=== PATIENT | male | born 1980 | race Caucasian/White ===

== ENCOUNTER 2017-08-22 23:17 | Observation (INO) ==
--- NOTE | 2017-08-22 23:37 | Emergency Department Note ---
Disposition Clinical Impression: Hypoxia, Tachycardia, Bronchitis Fever Qualifiers: Fever type: unspecified Qualified Code(s): R50.9 - Fever, unspecified Leukocytosis Qualifiers: Leukocytosis type: unspecified Qualified Code(s): D72.829 - Elevated white blood cell count, unspecified Disposition: Admitted As Inpatient Condition: Good Referrals: Hannah Bauman [employer] [Primary Care Provider] - Forms: ED Satisfaction Letter Time of Disposition: 00:26 SOB HPI - General Chief Complaint: ED Shortness of Breath/Dyspnea Stated Complaint: SOB / CP Time Seen by Provider: 08/22/17 23:28 Source: patient Mode of arrival: ambulatory Limitations: no limitations Nursing Notes Reviewed: Yes Vital Signs Reviewed: Yes - History of Present Illness Patient is a 36-year-old male who presents today due to cough, shortness of breath, fever. The symptoms have been present over the past 3 days. Fevers have been as high as 101 at home. I have seen this patient in the past about a month ago due to concern for chronic cough. At that time, the patient was sent home with a albuterol inhaler. He says that he has been using this at home and does not feel that it is working. He has a pulmonology appointment tomorrow at [facility] for further evaluation of his chronic cough and shortness of breath. However, his symptoms have worsened over the past 3 days which has prompted him to come into the ER. He has a home pulse ox and says that his pulse ox meter has been below 88% at home, especially when he exerts himself. He does not have any oxygen at home, no previous official diagnosis of asthma or COPD. Nonsmoker. - Related Data Previous Rx's Medication Instructions Recorded PredniSONE [Deltasone] 60 mg PO DAILY 5 Days #15 tablet 07/26/17 Allergies Allergy/AdvReac Type Severity Reaction Status Date / Time Penicillins [PCN] Allergy Hives Verified 07/25/17 21:23 All systems ED: reviewed and negative except as stated. Constitutional: Reports: fever Cardiovascular: Denies: chest pain Respiratory: Reports: cough, dyspnea. Denies: wheezes, sputum production Gastrointestinal: Denies: abdominal pain, nausea, vomiting, diarrhea Genitourinary: Denies: urgency, dysuria, frequency Integumentary: Denies: rash Neurological: Denies: weakness, numbness, paresthesias Past Medical History - Past Medical History Attestation: Yes The following information was validated with the patient. Source: patient Medical history: Reports: asthma, diabetes Psychiatric history: Reports: no psych history - Social History Smoking Status: Never smoker Smokeless Tobacco Status: No Alcohol use: Reports: none Drug use: Reports: none Physical Exam - General Limitations: no limitations General appearance: alert - Head Head exam: atraumatic, normocephalic, normal inspection - Eye Eye exam: Present: normal appearance, PERRL, EOMI - ENT ENT exam: normal exam, normal oropharynx, mucous membranes moist - Neck Neck exam: Present: normal inspection, full ROM, trachea midline - Chest Chest inspection: Present: normal inspection, symmetric chest wall rise - Respiratory Respiratory exam: Present: other (Decreased aeration throughout but no overt wheezes.) - Cardiovascular Cardiovascular exam: Present: normal rhythm, tachycardia, normal heart sounds - Abdominal Exam Abdominal exam: Present: soft, Non-Tender. Absent: tenderness, distention, guarding, rebound, rigidity - Extremities Exam Extremities exam: Present: normal inspection, full ROM. Absent: tenderness, pedal edema - Neurological Exam Neurological exam: Present: alert, oriented X3 - Psychiatric Psychiatric exam: Present: normal affect, normal mood - Skin Skin exam: Present: warm, dry, intact, normal color Course Course Narrative: Patient currently meeting SIRS criteria with tachycardia, fever and concern for respiratory illness. Oxygen was 91% on room air during my encounter. Patient was having reads of 88% at home on home pulse ox. Chest x-ray was negative. Currently waiting on flu swab and basic bloodwork. We will give the patient Solu-Medrol and DuoNeb 3. Plan for admission at this time. Patient likely has bronchitis with possible underlying asthma or COPD, recommend further workup by pulmonology. Will give dose of levaquin. No concern for PE at this time as patient has not had any unilateral calf swelling, long car rides, recent surgeries, any history of DVT or PE. 00:26 blood work shows leukocytosis of 18. Flu swab and lactic still pending. We will admit the patient for further care with the above plan. Chest X-Ray 08/22/17 23:23 IMPRESSION: No acute abnormality D/ / Gerry Bryson / Gerry Bryson Interpreting Provider: Gerry Bryson Vital Signs Temperature 100.0 F H 08/22/17 23:20 Pulse Rate 138 08/22/17 23:20 Respiratory Rate 20 08/22/17 23:20 Blood Pressure 146/78 08/22/17 23:20 O2 Sat by Pulse Oximetry 92 08/22/17 23:20 Temperature 100.0 F H 08/22/17 23:20 Pulse Rate 113 08/23/17 00:21 Respiratory Rate 18 08/23/17 00:22 Blood Pressure 137/80 08/23/17 00:21 O2 Sat by Pulse Oximetry 95 08/23/17 00:22 Oxygen Delivery Oxygen Delivery Nasal Cannula Shortness of Breath/Dyspnea - [facility] Narrative Medical decision making narrative: Patient currently meeting SIRS criteria with tachycardia, fever and concern for respiratory illness. Oxygen was 91% on room air during my encounter. Patient was having reads of 88% at home on home pulse ox. Chest x-ray was negative. Currently waiting on flu swab and basic bloodwork. We will give the patient Solu-Medrol and DuoNeb 3. Plan for admission at this time. Patient likely has bronchitis with possible underlying asthma or COPD, recommend further workup by pulmonology. Will give dose of levaquin. No concern for PE at this time as patient has not had any unilateral calf swelling, long car rides, recent surgeries, any history of DVT or PE. 00:26 blood work shows leukocytosis of 18. Flu swab and lactic still pending. We will admit the patient for further care with the above plan. - Medical Records Medical records reviewed: Yes I reviewed the patient's medical records. - Lab Data Lab results reviewed: Yes I reviewed the patient's lab results. Result diagrams: 08/22/17 00:00 Lab Results 08/22/17 Range/Units 00:00 WBC 18.7 H (4.3-11.1) K/mcL RBC 5.02 (4.19-5.50) M/mcL Hgb 14.4 (12.9-16.9) g/dL Hct 42.8 (37.5-50.1) % MCV 85.3 (83.0-100.0) fL MCH 28.7 (28.0-33.3) pg MCHC 33.6 (31.6-35.5) g/dL RDW 13.1 (11.5-14.5) % Plt Count 473 H (140-400) K/mcL MPV 9.9 (9.4-12.4) fL Immature Gran % 0.3 (0-4) % Seg Neutrophils % 70.4 % Lymphocytes % 19.4 % Monocytes % 7.8 % Eosinophils % 1.6 % Basophils % 0.5 % Neutrophils # 13.1 H (1.6-8.9) K/mcL Lymphocytes # 3.6 (0.6-4.6) K/mcL Monocytes # 1.5 H (0.0-1.3) K/mcL Eosinophils # 0.3 (0.0-0.6) K/mcL Basophils # 0.1 (0.0-0.2) K/mcL - Radiology Data Radiology results reviewed: Yes I reviewed the patient's radiology results. Chest X-Ray 08/22/17 23:23 IMPRESSION: No acute abnormality D/ / Gerry Bryson / Gerry Bryson Interpreting Provider: Gerry Bryson - EKG Data EKG attestation: Yes I reviewed and interpreted this EKG. EKG results narrative: 08/22/2017 at 23:29. Sinus tachycardia. Rate 128. OH 147. QRS 106. QTC 369. Mild left axis deviation. No acute ST elevation or depression. There are T wave inversions in lead 3. S.B.A.R. - S.B.A.R. Situation: Demographics, MOA Background: Presenting Complaint, Relevant PMH, Meds, & Allergies Assessment: Vital Signs, Course and respsone to treatment, Exam Concerns, Patient/Family Expectation, Pertinant Lab Results, Outstanding Labs Recommendation: Barrier(s) to disposition, Recommendation based on pending studies, treatments, or consults S.B.A.R. Report Given to: Dr. Skinner, flu and lactic pending Attestation Statement - Attestation Attestation: I examined this patient and my medical decision-making was reviewed with the Resident Physician. I agree with the documented findings, disposition and treatment plan as described except to the extent set forth below. Findings consistent with possible influenza related pneumonia. We will obtain chest x- ray, provide IV fluids, Tylenol, antibiotic therapy. Cultures will be sent. Patient be admitted for further management.
[2017-08-22] MEDS ORDERED: Acetaminophen IV 1,000 MG/100 ML INFUS..BTL IVPB ONE (23:48)
[2017-08-22] MEDS: 0.9 % Sodium Chloride 1,000 ML IVC SCH (23:56)
[2017-08-23] MEDS ORDERED: methylPREDNISolone 125 MG/2 ML VIAL IVP ONE (00:03)
[2017-08-23] MEDS ORDERED: Ipratropium/Albuterol Neb 3 ML IH ONE (00:03)
[2017-08-23] MEDS: 0.9 % Sodium Chloride 1,000 ML IVC SCH (00:15)
[2017-08-23] MEDS ORDERED: Levofloxacin 500 MG/100 ML 500 MG/100 ML BAG IVPB ONE (00:16)
[2017-08-23 00:18] LABS: Basophils # 0.1 K/mcL (0.0-0.2); Basophils % 0.5 %; Eosinophils # 0.3 K/mcL (0.0-0.6); Eosinophils % 1.6 %; Hematocrit 42.8 % (37.5-50.1); Hemoglobin 14.4 g/dL (12.9-16.9); Immature Granulocytes % 0.3 % (0-4); Lymphocytes # 3.6 K/mcL (0.6-4.6); Lymphocytes % 19.4 %; Mean Corpuscular HGB Conc 33.6 g/dL (31.6-35.5); Mean Corpuscular Hemoglobin 28.7 pg (28.0-33.3); Mean Corpuscular Volume 85.3 fL (83.0-100.0); Mean Platelet Volume 9.9 fL (9.4-12.4); Monocytes # 1.5 K/mcL (0.0-1.3); Monocytes % 7.8 %; Neutrophils # 13.1 K/mcL (1.6-8.9); Platelet Count 473 K/mcL (140-400); Red Blood Count 5.02 M/mcL (4.19-5.50); Red Cell Distribution Width 13.1 % (11.5-14.5); Segmented Neutrophils % 70.4 %
[2017-08-23 00:42] LABS: BUN/Creatinine Ratio 16 (6-26); Blood Urea Nitrogen 15 mg/dL (6-20); Calcium 8.5 mg/dL (8.6-10.3); Carbon Dioxide 26 mEq/L (23-29); Chloride 105 mEq/L (98-107); Glucose 93 mg/dL (70-105); Osmolality,Calculated 287 (280-300); Potassium 3.3 mEq/L (3.5-5.1); Sodium 138 mEq/L (136-145); eGFR For African Americans > 60 (> 60); eGFR For Non-African Americans > 60 (> 60)
[2017-08-23 00:43] LABS: Troponin I < 0.03 ng/mL (< 0.04)
--- NOTE | 2017-08-23 04:38 | Internal Med History&Physical ---
<JuanitolaciAlexandra bustillo H - Last Filed: 08/23/17 06:00> Date of Encounter: 08/23/17 Time of Encounter: 04:34 Internal Medicine - H&P: HPI Chief complaint: shortness of breath/cough Admitted From: Emergency Dept Plans for Post Hospital Care: Home History of present illness: Mr. Olivier is a 36 year old male with past medical history DM1 and seasonal allergies presents to [facility] on 08/23/2017 with CC of SOB and cough. Patient states he has had pneumonia several times in the past, therefore, he has a home pulse oximeter. He states his pulse ox at home have been reading in the high 80s range. States symptoms began approximately 6 weeks ago. He states it has been worsening since then. Over this past 6 weeks, he has been on 2 courses of antibiotics including a Z-Jason and a shot of Rocephin as well as Solu-Medrol. States he developed fevers on Sunday as well as cough and nasal congestion, sinus pressure, and sinus headaches. He is scheduled to see a public health director at [facility] tomorrow. Due to his fevers, worsening shortness of breath, and cough, he decided to present to the ED tonight. He denies any recent sick contacts, poor indoor home air quality, or recent moves. He states his only medication is insulin and singulair. He denies any chills, night sweats, nausea, vomiting, diarrhea, abdominal pain, chest pain, diaphoresis, hematuria, or dysuria. Past Med Surg Social Fam HX - Past Medical History Medical history: asthma, diabetes Psychiatric history: no psych history - Past Surgical History Surgical History: appendectomy - Social History Smoking Status: Never smoker Smokeless Tobacco Status: No Alcohol use: none Drug use: none Internal Medicine - H&P: Meds Montelukast [Singulair] 10 mg PO DAILY 08/23/17 [History] 3 Allergy/AdvReac Type Severity Reaction Status Date / Time Penicillins [PCN] Allergy Hives Verified 07/25/17 21:23 All Systems PM: A 10-system review of systems was performed and is negative for pertinent findings except as documented above in the HPI. - Constitutional Constitutional: fever(s), no anorexia, no chills, no night sweats, no weight gain, no weight loss - EENT Eyes: no change in vision, no other visual disturbances Ears: no decreased hearing Nose, mouth and throat: sinus pressure, no facial pain, no hoarseness - Cardiovascular Cardiovascular ROS IM: dyspnea on exertion, no chest pain, no claudication, no diaphoresis, no edema, no irregular heart rhythm, no lightheadedness, no orthopnea, no palpitations, no paroxysmal nocturnal dyspnea, no syncope - Respiratory Respiratory: cough (Dry), dyspnea, no wheezing, no pain on inspiration, no chest congestion, no excessive phlegm production, no pain with cough - Constitutional Vitals: Temp Pulse Resp BP Pulse Ox 98.7 F 110 18 130/79 93 08/23/17 02:10 08/23/17 02:10 08/23/17 02:10 08/23/17 02:10 08/23/17 02:10 Internal Med - H&P Results - Labs CBC & Chem 7: 08/22/17 00:00 08/22/17 23:23 - Assessment and plan (1) Cough Current Visit: Yes Status: Acute Assessment and plan: Suspect patient has asthma. Reports history as a baby. -patient has gotten significant relief from Duonebs -will continue duonebs. -DC IV steroids as patient with DM1 on insulin pump. -dextromethorphan 60mgPO q12hr -needs outpatient FU with public health director for further work up. Had appointment scheduled for today with public health director at [facility]. (2) Lower respiratory infection Current Visit: Yes Status: Acute Assessment and plan: Suspect viral process. Will cover for antibiotics to cover for any underlying infectious etiology. -FU respiratory infectious panel -FU blood cultures ordered in ED (3) Leukocytosis Current Visit: Yes Status: Acute Assessment and plan: Patient recently got a shot of steroids at urgent care 3 days ago. -Likely reactive leukocytosis secondary to steroid exposure. Qualifiers: Leukocytosis type: unspecified Qualified Code(s): D72.829 - Elevated white blood cell count, unspecified (4) Diabetes Current Visit: Yes Status: Acute Assessment and plan: Patient with DM1 on insulin pump. -Will continue pump as an inpatient. Qualifiers: Diabetes mellitus type: type 1 Diabetes mellitus complication status: without complication Qualified Code(s): E10.9 - Type 1 diabetes mellitus without complications - Time Spent With Patient Total time spent is greater than 50% in coordination of care (as documented) at patient's floor/unit and/or counseling patient: <Jonathon Caceres - Last Filed: 08/23/17 06:39> Date of Encounter: 08/23/17 Time of Encounter: 05:40 Past Med Surg Social Fam HX - Additional Family History Additional family history: No FH asthma or COPD - Constitutional Constitutional: fever(s), no chills, no night sweats - Cardiovascular Cardiovascular ROS IM: dyspnea, dyspnea on exertion, no chest pain - Respiratory Respiratory: cough, dyspnea, no hemoptysis, no wheezing, no chest congestion, no excessive phlegm production, no change in phlegm color, no pain with cough - Gastrointestinal Gastrointestinal: no abdominal pain, no diarrhea, no vomiting - Genitourinary Genitourinary ROS male: no dysuria, no hematuria - Musculoskeletal Musculoskeletal ROS IM: no muscle cramps, no myalgias - Integumentary Integumentary IM: no rash - Neurological Neurological ROS: no dizziness, no focal weakness, no headache(s) - Psychiatric Psychiatric: no anxiety, no depression - Endocrine Endocrine IM: no polydipsia, no polyuria - Hematologic/Lymphatic Hematologic/Lymphatic: no easy bruising, no lymphadenopathy - Constitutional Vitals: Temp Pulse Resp BP Pulse Ox 98.3 F 91 16 138/79 93 08/23/17 05:05 08/23/17 05:05 08/23/17 05:05 08/23/17 05:05 08/23/17 05:05 General appearance: Present: cooperative, A&O X 3, pleasant, no acute distress - Head Head exam: Present: atraumatic, normal inspection - Eye Eye exam: Present: EOMI, normal appearance, PERRL. Absent: scleral icterus Pupils: Present: normal accommodation - ENT ENT exam: Present: mucous membranes dry, normal exam - Neck Neck exam general surgery: Present: full ROM, supple. Absent: tenderness, nuchal rigidity, thyromegaly - Respiratory Respiratory exam: Present: rhonchi. Absent: accessory muscle use, chest wall tenderness, rales, respiratory distress, wheezes Additional comments: coughing frequently but otherwise in NAD - Cardiovascular Cardiovascular exam: Present: RRR, +S1, +S2. Absent: diastolic murmur, systolic murmur - GI/Abdominal GI/Abdominal exam: Present: soft. Absent: hepatomegaly, splenomegaly, tenderness - Extremities Exam Extremities exam: Present: full ROM, normal capillary refill, warm, radial pulses palpable and symmetrical. Absent: calf tenderness, joint swelling, pedal edema, tenderness - Back Exam Back exam: Absent: CVA tenderness (L), CVA tenderness (R) - Neurological Exam Neurological exam: Present: alert, CN II-XII intact, oriented X3, no focal deficits - Psychiatric Psychiatric exam: Present: normal affect, normal mood - Skin Skin exam: Present: dry, warm. Absent: rash Internal Med - H&P Results - Labs CBC & Chem 7: 08/22/17 00:00 08/22/17 23:23 - Diagnostic Studies Chest x-ray Status: image reviewed by me (negative) - Attending Attestation I discussed the patient [place], PMH, ROS, lab data, and exam findings with Dr. Mcallister. I then saw and examined patient independently as well. Patient reports a history of asthma as a toddler and young child and then he "outgrew it ". He has had a chronic cough of over 6 weeks now and recurrent URI/LRTI this winter/spring. He's been treated for pneumonia twice as outpatient. However, he's failed to improve. In ER, he received aerosols and states he felt much better after an aerosol treatment. I strongly suspect he has asthma and likely a viral LRTI now. Will order Respiratory infection panel. Will continue antibiotics for now but I feel we can likely stop those in 2 days if blood cultures are negative. In my humble opinion, I do not feel he is septic despite ER's concern for SIRS/sepsis. His leukocytosis is likely due to steroids he's received in recent days. He is on room air now and breathing comfortably. We will hold off on steroids for now. We will place him on aerosols and PO Levaquin. He can likely be discharged later today or tomorrow with close outpatient follow up. He can also be referred to pulmonary as an outpatient for further diagnostic work-up and management. Other than my comments above and noted exam findings, I agree with Dr. Mcallister' s assessment and plan. - Assessment and plan (1) Leukocytosis Current Visit: Yes Status: Acute Qualifiers: Leukocytosis type: unspecified Qualified Code(s): D72.829 - Elevated white blood cell count, unspecified (2) Lower respiratory infection Current Visit: Yes Status: Acute (3) Cough Current Visit: Yes Status: Acute (4) Diabetes Current Visit: Yes Status: Acute Qualifiers: Diabetes mellitus type: type 1 Diabetes mellitus complication status: without complication Qualified Code(s): E10.9 - Type 1 diabetes mellitus without complications - Time Spent With Patient Total time spent is greater than 50% in coordination of care (as documented) at patient's floor/unit and/or counseling patient:
[2017-08-23] MEDS ORDERED: Dextromethorphan Polistrx(12h) 30 MG/5 ML UDC PO PRN (05:08)
[2017-08-23] MEDS ORDERED: Ipratropium/Albuterol Neb 3 ML IH PRN (05:12)
[2017-08-23] MEDS ORDERED: Naloxone 0.4 MG/ML INJ IVP PRN (05:13)
[2017-08-23] MEDS ORDERED: *HR* Heparin 5,000 UNIT/ML VIAL SQ SCH (06:00)
[2017-08-23] MEDS ORDERED: levoFLOXacin 500 MG TABLET PO SCH (09:00)
[2017-08-23] MEDS ORDERED: Dextrose Gel 15 GM/37.5 ML TUBE PO PRN ×2 (09:16)
[2017-08-23] MEDS ORDERED: D5% in Water 1,000 ML IVC PRN (09:16)
[2017-08-23] MEDS ORDERED: *HR* Dextrose 50 % in Water (Syg) 50 ML SYRINGE IVP PRN (09:16)
--- NOTE | 2017-08-23 09:57 | Discharge Summary ---
- NOTES TO OUTPATIENT PROVIDER Notes to Outpatient Provider: Follow up with primary care physician in 7 days. COmplete 6 days of levaquin . Prednisone taper 40 mg for 5 days, 30 mg for 5 days, 20 mg for 5 days, 10 mg for 5 days. Follow up with front office specialist within 2-3 weeks. Use rescue inhaler and continue Singulair Orders not resulted at time of discharge: Pending orders 08/23/17 05:52 Respiratory Infection Panel [MOLMIC] Routine 08/24/17 04:00 Basic Metabolic Panel AM 0400 Complete Blood Count [HEME] AM 0400 Date of Encounter: 08/23/17 Time of Encounter: 09:55 - Discharge Diagnosis (1) Reactive airway disease with acute exacerbation Priority: Primary Status: Acute Comments: Acute hypoxia due to possible acute asthma attack 2ry to acute bronchitis possibly bacterial Sats in the 80s at home Qualifiers: Asthma severity: moderate Asthma persistence: persistent Qualified Code(s ): J45.41 - Moderate persistent asthma with (acute) exacerbation (2) Leukocytosis Priority: Secondary Status: Acute Qualifiers: Leukocytosis type: unspecified Qualified Code(s): D72.829 - Elevated white blood cell count, unspecified (3) Lower respiratory infection Priority: Primary Status: Acute (4) Cough Priority: Primary Status: Acute (5) Diabetes Priority: Secondary Status: Acute Qualifiers: Diabetes mellitus type: type 1 Diabetes mellitus complication status: without complication Qualified Code(s): E10.9 - Type 1 diabetes mellitus without complications (6) SIRS (systemic inflammatory response syndrome) Priority: Primary Status: Acute (7) Hypokalemia Priority: Secondary Status: Acute Hospital course: Mr. Olivier is a 36 year old male with past medical history of DM1 using an insulin pump , asthma during shilhood and seasonal allergies presented to [facility] on 08/23/2017 with CC of SOB and cough. Patient stated he had pneumonia several times in the past, therefore, he has a home pulse oximeter. He stated his pulse ox at home was reading in the high 80s range. Stated symptoms began approximately 6 weeks ago. He stated it has been worsening since then. Over this past 6 weeks, he has been on 2 courses of antibiotics including a Z-Jason and a shot of Rocephin as well as Solu-Medrol. He developed fevers on Sunday as well as cough and nasal congestion, sinus pressure, and sinus headaches. He was scheduled to see a letter of credit clerk at [facility] today. Due to his fevers, worsening shortness of breath, and cough, he decided to present to the ED tonight. He denied any recent sick contacts, poor indoor home air quality, or recent moves. He states his only medicationd are insulin and singulair. CXR showed: No acute abnormality WBC was 18, K was 3.3, HR was 138 had a fever of 100 SIRS due to bronchitis is possible Improved on solumedrol, started on Levaquin, RVP sent - Time Spent with Patient Total time spent providing and/or coordinating discharge services: Greater than 30 minutes (40 min) - Discharge Medications Prescriptions: Benzonatate [Tessalon] 100 mg PO TID PRN #30 capsule PRN Reason: Cough levoFLOXacin [Levaquin] 500 mg PO DAILY #6 tablet predniSONE [PredniSONE] 40 mg PO DAILY 20 Days tablet Home Medications: Albuterol Sulfate [Ventolin Hfa] 2 puff IH Q4H PRN 08/23/17 [History] Benzonatate [Tessalon] 100 mg PO TID PRN #30 capsule 08/23/17 [Rx] Montelukast [Singulair] 10 mg PO DAILY 08/23/17 [History] Subcutaneous Insulin Pump [T:Slim] 1 each SQ CONT 08/23/17 [History] levoFLOXacin [Levaquin] 500 mg PO DAILY #6 tablet 08/23/17 [Rx] predniSONE [PredniSONE] 40 mg PO DAILY 20 Days tablet 08/23/17 [Rx] Allergies/Adverse Reactions: 3 Allergy/AdvReac Type Severity Reaction Status Date / Time Penicillins [PCN] Allergy Hives Verified 08/23/17 09:35 Date of admission: 08/23/17 01:34 Primary care physician: Hannah Bauman, - Constitutional Vitals: Temp Pulse Resp BP Pulse Ox 98.2 F 99 16 133/70 95 08/23/17 08:01 08/23/17 08:01 08/23/17 08:01 08/23/17 08:01 08/23/17 08:01 General appearance: Present: cooperative, A&O X 3, pleasant, no acute distress - Head Head exam: Present: atraumatic, normocephalic - Eye Eye exam: Present: PERRL, conjuntiva pink, sclera anicteric Pupils: Present: PERRL - Neck Neck exam general surgery: Present: supple, trachea midline. Absent: lymphadenopathy - Respiratory Respiratory exam: Present: CTAB. Absent: accessory muscle use, rales, rhonchi, wheezes - Cardiovascular Cardiovascular exam: Present: RRR, +S1, +S2. Absent: diastolic murmur, gallop, rubs, systolic murmur - GI/Abdominal GI/Abdominal exam: Present: normal bowel sounds, soft, no peritoneal signs. Absent: distended, tenderness - Extremities Exam Extremities exam: Present: warm, radial pulses palpable and symmetrical. Absent : calf tenderness, cyanotic, pedal edema - Neurological Exam Neurological exam: Present: CN II-XII intact, oriented X3, no focal deficits. Absent: pronater drift, facial droop, speech deficit - Skin Skin exam: Present: dry, intact - Patient Status Disposition: Home, Self-Care Condition: Good Overall status at discharge: patient is progressing back to baseline - Discharge Instructions Follow Up With: Hannah Bauman CNP [Primary Care Provider] - Additional Instructions: Follow up with primary care physician in 7 days. COmplete 6 days of levaquin . Prednisone taper 40 mg for 5 days, 30 mg for 5 days, 20 mg for 5 days, 10 mg for 5 days. Follow up with front office specialist within 2-3 weeks. Use rescue inhaler and continue Singulair - Diet and Activity Activity: increase activity as tolerated Diet: diabetic diet
[2017-08-23] MEDS ORDERED: predniSONE 20 MG TABLET PO SCH (10:00)
[2017-08-23 11:16] VITALS: BP 125/80
[2017-08-23 11:51] LABS: Adenovirus Not Detected (Not Detect); Bordetella Pertussis Not Detected (Not Detect); Chlamydophila pneumoniae Not Detected (Not Detect); Coronavirus 229E Not Detected (Not Detect); Coronavirus HKU1 Not Detected (Not Detect); Coronavirus NL63 Not Detected (Not Detect); Coronavirus OC43 Not Detected (Not Detect); Human Metapneumovirus Not Detected (Not Detect); Human Rhinovirus/Enterovirus Not Detected (Not Detect); Influenza A Subtype 2009 H1 Not Detected (Not Detect); Influenza A Untypeable Not Detected (Not Detect); Influenza B Not Detected (Not Detect); Mycoplasma pneumoniae Not Detected (Not Detect); Parainfluenza Virus 1 Not Detected (Not Detect); Parainfluenza Virus 2 Not Detected (Not Detect); Parainfluenza Virus 3 Not Detected (Not Detect); Parainfluenza Virus 4 Not Detected (Not Detect); Respiratory Syncytial Virus Not Detected (Not Detect)
--- NOTE | 2017-08-23 17:02 | Electrocardiograph Report ---
[place] [id number] Test Date: 2017-08-22 Pat Name: Dakota Olivier Department: 104 Room: [facility] Gender: M Material Stress Tester: STEVEN : 1980 Requested By: Lawrence Alcantara Order Number: [id number] Reading MD: Myriam Yeager Measurements Intervals [place] Rate: 128 P: 44 GA: 147 QRS: -44 QRSD: 106 T: 8 QT: 293 QTc: 369 Interpretive Statements SINUS TACHYCARDIA INDETERMINATE AXIS Electronically Signed On 08-23-2017 17:01:24 EDT by Myriam Yeager
== END 2017-08-23 12:35 | disposition home or self-care (01) ==
LOC: 2ANU 23:17 → EMEROO 23:17 → 2ANU 08-23 01:59
PROVIDERS: ADMIT Pediatrics; ATTEND Internal Medicine